=== PATIENT | male | born 1980 | race Caucasian/White ===

== ENCOUNTER 2017-08-05 20:16 | Emergency (ER) | payer OTHER | END 2017-08-05 22:59 | disposition home or self-care (01) | LOC: FTE 20:16 | DX: H57.8 Other specified disorders of eye and adnexa (principal); J45.909 Unspecified asthma, uncomplicated; N18.9 Chronic kidney disease, unspecified; E11.22 Type 2 diabetes mellitus with diabetic chronic kidney disease | CPT/HCPCS: 99282; Z7502 ==